=== PATIENT | female | born 1970 | race Caucasian/White ===

== ENCOUNTER 2021-05-29 09:18 | Inpatient (IN) ==
[2021-05-29] MEDS ORDERED: *HR* FentaNYL (PF) 100 MCG/2 ML VIAL ONE (09:26)
[2021-05-29] MEDS ORDERED: Lidocaine -MPF 2% 5 ML VIAL ONE (09:26)
[2021-05-29] MEDS ORDERED: Lidocaine HCL 4 ML Topical Solution (Laryng-O-Jet Kit Sterile Pak) TP ONE (09:26)
[2021-05-29] MEDS ORDERED: Ondansetron 4 MG/2 ML VIAL ONE (09:26)
[2021-05-29] MEDS ORDERED: *HR* Midazolam HCl 2 MG/2 ML VIAL ONE (09:26)
[2021-05-29] MEDS ORDERED: *HR* Rocuronium Bromide 50 MG/5 ML VIAL ONE (09:26)
[2021-05-29] MEDS ORDERED: *HR* Succinylcholine 200 MG/10 ML VIAL IVP ONE (09:26)
[2021-05-29] MEDS ORDERED: *HR* Propofol 200 MG/20 ML VIAL IVP ONE ×2 (09:26→10:19)
[2021-05-29] MEDS ORDERED: CeFAZolin Syr 2,000MG/20 ML 2,000 MG/20 ML SYRINGE IVPB ONE (09:33)
[2021-05-29] MEDS ORDERED: Ringers Solution, Lactated 1,000 ML IVC SCH (09:45)
[2021-05-29] MEDS ORDERED: Famotidine 20 MG/2 ML VIAL IVP ONE (10:00)
[2021-05-29] MEDS ORDERED: Acetaminophen IV 1,000 MG/100 ML BAG IVPB ONE (10:00)
[2021-05-29] MEDS ORDERED: Scopolamine Patch 1.5 MG PATCH.TD72 TD ONE (10:09)
[2021-05-29] MEDS ORDERED: *HR* OxyCODONE Immed Rel 5 MG TABLET PO PRN (10:13)
[2021-05-29] MEDS ORDERED: Albuterol 2.5 MG/3 ML NEBULIZER IH PRN (10:13)
[2021-05-29] MEDS ORDERED: Ondansetron 4 MG/2 ML VIAL IVP PRN ×2 (10:13→17:32)
[2021-05-29] MEDS ORDERED: *HR* HYDROmorphone PF 0.5 MG/0.5 ML SYRINGE IVP PRN (10:13)
[2021-05-29] MEDS ORDERED: Sugammadex Sodium 200 MG/2 ML VIAL IV ONE (11:27)
[2021-05-29] MEDS ORDERED: *HR* HYDROMORPHONE 2 MG/ML VIAL ONE (11:37)
[2021-05-29] MEDS ORDERED: Naloxone 0.4 MG/ML INJ IVP PRN (17:32)
[2021-05-29] MEDS: 0.9 % Sodium Chloride 1,000 ML IVC SCH (17:50)
[2021-05-29] MEDS: Ketorolac 15 MG/ML VIAL IVP SCH (17:51)
[2021-05-29] MEDS: Ipratropium/Albuterol Neb 3 ML IH SCH ×2 (19:22→20:59)
[2021-05-29] MEDS: *HR* Heparin 5,000 UNIT/ML VIAL SQ SCH ×2 (20:25→20:42)
[2021-05-29] MEDS: Gabapentin 300 MG CAPSULE PO SCH ×2 (20:25→20:41)
[2021-05-29] MEDS: *HR* HYDROcodone/Acet 5/325 mg TABLET PO PRN (20:25)
[2021-05-29] MEDS: Famotidine 20 MG TABLET PO SCH (20:25)
[2021-05-29] MEDS: Sennosides/Docusate Sodium TABLET PO SCH (20:25)
[2021-05-30] MEDS: Ipratropium/Albuterol Neb 3 ML IH SCH ×3 (00:01→07:11)
[2021-05-30] MEDS: Ketorolac 15 MG/ML VIAL IVP SCH ×2 (00:39→06:08)
[2021-05-30] MEDS: *HR* Heparin 5,000 UNIT/ML VIAL SQ SCH (06:08)
[2021-05-30] MEDS: 0.9 % Sodium Chloride 1,000 ML IVC SCH (06:08)
[2021-05-30 06:41] LABS: Hematocrit 34.1 % (35.3-44.9); Hemoglobin 10.7 g/dL (11.5-15.4); Mean Corpuscular HGB Conc 31.4 g/dL (31.6-35.5); Mean Corpuscular Hemoglobin 29.8 pg (28.0-33.3); Mean Platelet Volume 9.3 fL (9.4-12.4); Platelet Count 300 K/mcL (140-400); Red Blood Count 3.59 M/mcL (3.82-4.97); Red Cell Distribution Width 12.5 % (11.5-14.5); White Blood Count 11.6 K/mcL (4.3-11.1)
[2021-05-30 07:01] LABS: BUN/Creatinine Ratio 18 (6-26); Blood Urea Nitrogen 12 mg/dL (6-20); Calcium 9.3 mg/dL (8.6-10.3); Carbon Dioxide 26 mEq/L (23-29); Chloride 106 mEq/L (98-107); Glucose 111 mg/dL (70-105); Osmolality,Calculated 284 (280-300); Sodium 137 mEq/L (136-145); eGFR For African Americans > 60 (> 60); eGFR For Non-African Americans > 60 (> 60)
[2021-05-30] MEDS: Sennosides/Docusate Sodium TABLET PO SCH (07:37)
[2021-05-30] MEDS: Gabapentin 300 MG CAPSULE PO SCH (07:37)
[2021-05-30] MEDS: Famotidine 20 MG TABLET PO SCH (07:38)
[2021-05-30] MEDS: *HR* HYDROcodone/Acet 5/325 mg TABLET PO PRN (07:38)
[2021-05-30 08:06] VITALS: BP 106/56; PULSE 106; O2SAT 98
[2021-05-30 08:56] VITALS: TEMP 98.5
== END 2021-05-30 11:32 | disposition home or self-care (01) | DRG 166 ==
LOC: SAMDAY 09:18 → 2NNU 17:31
PROVIDERS: ADMIT Thoracic Surgery (Cardiothoracic Vascular Surgery); ATTEND Thoracic Surgery (Cardiothoracic Vascular Surgery)

== ENCOUNTER 2021-06-12 09:54 | Inpatient (IN) ==
[2021-06-12] MEDS ORDERED: CeFAZolin Syr 2,000MG/20 ML 2,000 MG/20 ML SYRINGE IVPB ONE (10:36)
[2021-06-12] MEDS ORDERED: Ringers Solution, Lactated 1,000 ML IVC SCH (10:45)
[2021-06-12] MEDS ORDERED: Acetaminophen IV 1,000 MG/100 ML BAG IVPB ONE (10:58)
[2021-06-12] MEDS ORDERED: *HR* Propofol 200 MG/20 ML VIAL IVP ONE ×3 (10:59→13:46)
[2021-06-12] MEDS ORDERED: Ondansetron 4 MG/2 ML VIAL ONE (11:00)
[2021-06-12] MEDS ORDERED: *HR* Rocuronium Bromide 50 MG/5 ML VIAL ONE (11:00)
[2021-06-12] MEDS ORDERED: *HR* Succinylcholine 200 MG/10 ML VIAL IVP ONE (11:00)
[2021-06-12] MEDS ORDERED: Lidocaine -MPF 2% 5 ML VIAL ONE ×2 (11:00→13:39)
[2021-06-12] MEDS ORDERED: *HR* FentaNYL (PF) 100 MCG/2 ML VIAL ONE ×3 (11:00→16:02)
[2021-06-12] MEDS ORDERED: *HR* Midazolam HCl 2 MG/2 ML VIAL ONE (11:01)
[2021-06-12] MEDS ORDERED: Lidocaine HCL 4 ML Topical Solution (Laryng-O-Jet Kit Sterile Pak) TP ONE (12:42)
[2021-06-12] MEDS ORDERED: Sugammadex Sodium 200 MG/2 ML VIAL IV ONE (13:51)
[2021-06-12] MEDS ORDERED: *HR* HYDROMORPHONE 2 MG/ML VIAL ONE (14:15)
[2021-06-12] MEDS ORDERED: *HR* FentaNYL (PF) 100 MCG/2 ML VIAL IVP PRN (16:10)
[2021-06-12] MEDS ORDERED: *HR* HYDROmorphone (PF) 1 MG/ML SYRINGE IVP PRN (16:13)
[2021-06-12] MEDS ORDERED: 0.9 % Sodium Chloride 1,000 ML IVC SCH (19:18)
[2021-06-12] MEDS ORDERED: Naloxone 0.4 MG/ML INJ IVP PRN (19:18)
[2021-06-12] MEDS ORDERED: Ondansetron 4 MG/2 ML VIAL IVP PRN (19:18)
[2021-06-12] MEDS ORDERED: ceFAZolin 1,000 MG in Water for inj. (sterile) 10 ML IVP SCH (19:18)
[2021-06-12] MEDS: ceFAZolin 1,000 MG in 0.9 % Sodium Chloride Mini Bag 100 ML IVP SCH (19:49)
[2021-06-12] MEDS: Ketorolac 15 MG/ML VIAL IVP SCH (19:50)
[2021-06-12] MEDS: Sennosides/Docusate Sodium TABLET PO SCH (19:54)
[2021-06-12] MEDS: Gabapentin 300 MG CAPSULE PO SCH ×2 (19:54→19:59)
[2021-06-12] MEDS: Famotidine 20 MG TABLET PO SCH (19:54)
[2021-06-12] MEDS: Ipratropium/Albuterol Neb 3 ML IH SCH ×3 (20:22→23:26)
[2021-06-12] MEDS ORDERED: ALPRAZolam 0.25 MG TABLET PO PRN (20:37)
[2021-06-12] MEDS: *HR* Heparin 5,000 UNIT/ML VIAL SQ SCH (22:26)
[2021-06-12] MEDS: *HR* HYDROcodone/Acet 5/325 mg TABLET PO PRN (22:31)
[2021-06-13 00:46] LABS: Hematocrit 35.1 % (35.3-44.9); Hemoglobin 11.1 g/dL (11.5-15.4); Mean Corpuscular HGB Conc 31.6 g/dL (31.6-35.5); Mean Corpuscular Hemoglobin 29.4 pg (28.0-33.3); Mean Corpuscular Volume 93.1 fL (83.0-100.0); Mean Platelet Volume 8.9 fL (9.4-12.4); Platelet Count 448 K/mcL (140-400); Red Blood Count 3.77 M/mcL (3.82-4.97); White Blood Count 11.2 K/mcL (4.3-11.1)
[2021-06-13] MEDS: Ketorolac 15 MG/ML VIAL IVP SCH ×4 (01:07→18:24)
[2021-06-13 01:08] LABS: BUN/Creatinine Ratio 16 (6-26); Blood Urea Nitrogen 9 mg/dL (6-20); Calcium 8.5 mg/dL (8.6-10.3); Carbon Dioxide 23 mEq/L (23-29); Chloride 102 mEq/L (98-107); Glucose 159 mg/dL (70-105); Magnesium 1.7 mg/dL (1.6-2.6); Osmolality,Calculated 280 (280-300); Potassium 3.9 mEq/L (3.5-5.1); Sodium 134 mEq/L (136-145); eGFR For African Americans > 60 (> 60); eGFR For Non-African Americans > 60 (> 60)
[2021-06-13] MEDS: Ipratropium/Albuterol Neb 3 ML IH SCH ×6 (03:30→23:26)
[2021-06-13] MEDS: ceFAZolin 1,000 MG in 0.9 % Sodium Chloride Mini Bag 100 ML IVP SCH ×3 (06:15→20:42)
[2021-06-13] MEDS: *HR* Heparin 5,000 UNIT/ML VIAL SQ SCH ×3 (06:16→20:42)
[2021-06-13] MEDS: Loratadine 10 MG TABLET PO SCH (08:13)
[2021-06-13] MEDS: Famotidine 20 MG TABLET PO SCH ×2 (08:13→21:31)
[2021-06-13] MEDS: Gabapentin 300 MG CAPSULE PO SCH ×3 (08:14→20:41)
[2021-06-13] MEDS: Lactobacillus 1 EACH CAP.SPRINK PO SCH (08:14)
[2021-06-13] MEDS: Sennosides/Docusate Sodium TABLET PO SCH ×2 (08:14→20:39)
[2021-06-13] MEDS: *HR* HYDROcodone/Acet 5/325 mg TABLET PO PRN ×3 (09:50→20:40)
[2021-06-14] MEDS: Ketorolac 15 MG/ML VIAL IVP SCH ×4 (00:51→17:05)
[2021-06-14] MEDS: Ipratropium/Albuterol Neb 3 ML IH SCH ×5 (03:52→19:58)
[2021-06-14] MEDS: ceFAZolin 1,000 MG in 0.9 % Sodium Chloride Mini Bag 100 ML IVP SCH ×2 (05:26→12:57)
[2021-06-14] MEDS: *HR* Heparin 5,000 UNIT/ML VIAL SQ SCH ×3 (05:27→20:28)
[2021-06-14] MEDS: Loratadine 10 MG TABLET PO SCH (07:53)
[2021-06-14] MEDS: Famotidine 20 MG TABLET PO SCH ×2 (07:53→20:28)
[2021-06-14] MEDS: Sennosides/Docusate Sodium TABLET PO SCH ×2 (07:53→20:27)
[2021-06-14] MEDS: Gabapentin 300 MG CAPSULE PO SCH ×3 (07:53→20:28)
[2021-06-14] MEDS: Lactobacillus 1 EACH CAP.SPRINK PO SCH (07:53)
[2021-06-14] MEDS: *HR* HYDROcodone/Acet 5/325 mg TABLET PO PRN (20:47)
[2021-06-14] MEDS ORDERED: Ibuprofen 400 MG TABLET PO PRN (22:28)
[2021-06-15] MEDS: Ipratropium/Albuterol Neb 3 ML IH SCH ×4 (00:29→11:49)
[2021-06-15 02:58] LABS: BUN/Creatinine Ratio 17 (6-26); Blood Urea Nitrogen 10 mg/dL (6-20); Calcium 8.6 mg/dL (8.6-10.3); Carbon Dioxide 25 mEq/L (23-29); Chloride 106 mEq/L (98-107); Glucose 103 mg/dL (70-105); Magnesium 1.8 mg/dL (1.6-2.6); Osmolality,Calculated 285 (280-300); Potassium 3.8 mEq/L (3.5-5.1); Sodium 138 mEq/L (136-145); eGFR For African Americans > 60 (> 60); eGFR For Non-African Americans > 60 (> 60)
[2021-06-15] MEDS: *HR* Heparin 5,000 UNIT/ML VIAL SQ SCH (06:43)
[2021-06-15] MEDS: *HR* HYDROcodone/Acet 5/325 mg TABLET PO PRN (06:43)
[2021-06-15 06:54] VITALS: TEMP 98.2; O2SAT 98
[2021-06-15] MEDS: Famotidine 20 MG TABLET PO SCH (07:35)
[2021-06-15] MEDS: Sennosides/Docusate Sodium TABLET PO SCH (07:36)
[2021-06-15] MEDS: Lactobacillus 1 EACH CAP.SPRINK PO SCH (07:36)
[2021-06-15] MEDS: Loratadine 10 MG TABLET PO SCH (07:36)
[2021-06-15] MEDS: Gabapentin 300 MG CAPSULE PO SCH (07:36)
[2021-06-15 11:07] VITALS: BP 119/74; PULSE 96
== END 2021-06-15 12:53 | disposition home or self-care (01) | DRG 165 ==
LOC: SAMDAY 09:54 → 2NNU 18:35
PROVIDERS: ADMIT Thoracic Surgery (Cardiothoracic Vascular Surgery); ATTEND Thoracic Surgery (Cardiothoracic Vascular Surgery)